=== PATIENT | female | born 2000 | race Caucasian/White ===

== ENCOUNTER 2024-06-26 08:31 | Emergency (ER) | payer OTHER ==
[~2024-06-26] VITALS: Ht 160 cm; Wt 86.2 kg
[2024-06-26 08:45] VITALS: BP 115/78; O2SAT 98
[2024-06-26] MEDS ORDERED: ANTICONCEPTIVO (08:45)
[2024-06-26] MEDS ORDERED: KETOROLAC TROMETHAMINE 60 MG VIAL IM ONE (09:15)
[2024-06-26] MEDS ORDERED: KETO10TA2 PO (09:58)
== END 2024-06-26 11:36 | disposition home or self-care (01) ==
LOC: ER 08:33
DX: M54.50 Low back pain, unspecified (principal); V43.52XA Car driver injured in collision with other type car in traffic accident, initial encounter; Y93.89 Activity, other specified; Y92.413 State road as the place of occurrence of the external cause

== ENCOUNTER 2024-09-03 12:26 | Emergency (ER) | payer OTHER ==
[~2024-09-03] VITALS: Ht 160 cm; Wt 86.2 kg
[~2024-09-03 12:26] MED LIST: ANTICONCEPTIVO; KETO10TA2 PO
[2024-09-03 14:03] VITALS: BP 103/71; O2SAT 99
[2024-09-03] MEDS ORDERED: CEFTRIAXONE SODIUM 1,000 MG VIAL IM STA (16:53)
[2024-09-03] MEDS ORDERED: BUDESONIDE 0.5 MG/2 ML AMPUL.NEB IH STA (16:53)
[2024-09-03] MEDS ORDERED: GUAIFEN/DEXTROMETHORPHAN/PE 10 ML BLIST.PACK PO STA (16:54)
[2024-09-03] MEDS ORDERED: ALBUTEROL SULFATE 0.5 ML/2.5 MG SOLUTION IH SCH (17:00)
[2024-09-03] MEDS ORDERED: CEFTRIAXONE SODIUM 1,000 MG VIAL ONE (17:06)
[2024-09-03] MEDS ORDERED: GUAIFENESIN/DEXTROMETHORPHAN 5ML BLIST.PACK PO ONE (17:06)
[2024-09-03 17:52] LABS: HEMATOCRIT 39.4 % (36.0-45.00); HEMOGLOBIN 12.8 g/dL (12.0-15.00); MEAN CORPUSCULAR HEMOGLOBIN 24.1 pg (27.00-32.0); MEAN CORPUSCULAR HGB CONC 32.6 g/dl (32.0-36.0); PLATELET COUNT 264 K/uL (150-450); RED BLOOD COUNT 5.32 M/uL (4.00-6.00); RED CELL DISTRIBUTION WIDTH 13.4 % (11.5-14.5)
[2024-09-03] MEDS ORDERED: BUDESONIDE 0.5 MG/2 ML AMPUL.NEB IH ONE (18:01)
[2024-09-03] MEDS ORDERED: ALBUTEROL SULFATE 3 ML/2.5 MG AMPUL.NEB IH ONE (18:02)
[2024-09-03] MEDS ORDERED: LEVALBUTEROL HCL 0.63 MG/3 ML SOLUTION IH ONE (18:06)
== END 2024-09-03 19:21 | disposition home or self-care (01) ==
LOC: ER 12:28 → EMR PED 12:45
DX: B34.9 Viral infection, unspecified (principal); Z20.822 Contact with and (suspected) exposure to COVID-19